=== PATIENT | male | born 1960 | race Caucasian/White ===

== ENCOUNTER 2016-12-02 12:16 | Emergency (ER) | payer SELFPAY ==
[~2016-12-02] VITALS: Ht 167.6 cm; Wt 98.0 kg
[2016-12-02] MEDS ORDERED: MOTRIN400 MG PO ×2 (15:19→16:05)
[2016-12-02 16:20] VITALS: BP 139/77
== END 2016-12-02 16:26 | disposition home or self-care (01) | DRG 563 ==
LOC: ED 12:16
DX: S43.102A Unspecified dislocation of left acromioclavicular joint, initial encounter (principal); F17.290 Nicotine dependence, other tobacco product, uncomplicated; W10.9XXA Fall (on) (from) unspecified stairs and steps, initial encounter; Y92.008 Other place in unspecified non-institutional (private) residence as the place of occurrence of the external cause